=== PATIENT | female | born 1995 | race Two or more races ===

== ENCOUNTER 2016-11-27 22:24 | Emergency (ER) | payer SELFPAY ==
[~2016-11-27] VITALS: Ht 167.6 cm; Wt 48.0 kg
[2016-11-27 22:31] VITALS: BP 150/80
[2016-11-27] MEDS ORDERED: ONDANSETRON ODT 4 MG ONE (23:13)
[2016-11-27] MEDS ORDERED: METHOCARBAMOL 750 MG TABLET ONE (23:13)
[2016-11-27] MEDS ORDERED: KETOROLAC 30 MG/1 ML ONE (23:13)
[2016-11-27] MEDS ORDERED: ONDANSETRON ODT 4 MG PO ONE (23:30)
[2016-11-27] MEDS ORDERED: METHOCARBAMOL 750 MG TABLET PO ONE (23:30)
[2016-11-27] MEDS ORDERED: KETOROLAC 30 MG/1 ML IM ONE (23:30)
== END 2016-11-28 00:34 | disposition home or self-care (01) ==
LOC: ED 23:59
DX: S39.012A Strain of muscle, fascia and tendon of lower back, initial encounter (principal); S93.492A Sprain of other ligament of left ankle, initial encounter; V89.2XXA Person injured in unspecified motor-vehicle accident, traffic, initial encounter; Y93.89 Activity, other specified; Y99.8 Other external cause status; Y92.488 Other paved roadways as the place of occurrence of the external cause
CPT/HCPCS: 72110; 73502; 73610; 96372; 99284; J1885; Q0162